=== PATIENT | male | born 1965 | race African-American/Black ===

== ENCOUNTER 2020-05-24 16:47 | Emergency (ER) | payer BC, MEDICAID, OTHER ==
[~2020-05-24] VITALS: Ht 177.8 cm; Wt 92.0 kg
[2020-05-24] MEDS ORDERED: HYDROCODONE/ACETAMINOPHEN 5/325MG TABLET PO ONE (17:30)
[2020-05-24 18:10] VITALS: BP 155/77
== END 2020-05-24 23:40 | disposition home or self-care (01) ==
LOC: ER 16:47
DX: S43.102A Unspecified dislocation of left acromioclavicular joint, initial encounter (principal); V49.59XA Passenger injured in collision with other motor vehicles in traffic accident, initial encounter; Y93.89 Activity, other specified; Y92.89 Other specified places as the place of occurrence of the external cause; Y99.8 Other external cause status; I10 Essential (primary) hypertension
CPT/HCPCS: 71045; 72141; 73010; 99285